=== PATIENT | female | born 1970 | race Caucasian/White ===

== ENCOUNTER 2025-02-20 11:44 | Outpatient (RCR) | payer OTHER, SELFPAY ==
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
== END 2025-02-20 19:00 | disposition home or self-care (01) ==
LOC: PT 11:44
PROVIDERS: PCP Nurse Practitioner Family; Referring Provider Physician Assistant; Visit Provider Physician Assistant
DX: S16.1XXD Strain of muscle, fascia and tendon at neck level, subsequent encounter (principal); S46.812D Strain of other muscles, fascia and tendons at shoulder and upper arm level, left arm, subsequent encounter; M54.12 Radiculopathy, cervical region
CPT/HCPCS: 97112; 97162; 97530